=== PATIENT | male | born 1980 | race Hispanic/Latino ===

== ENCOUNTER 2017-05-24 22:11 | Emergency (ER) | payer SELFPAY ==
[2017-05-24 22:21] VITALS: BP 144/87; PULSE 89; RESP 18; TEMP 98.5; O2SAT 98
[2017-05-24] MEDS ORDERED: Oxycodone/Acetaminophen 5/325 mg Tab PO STA (22:30)
[2017-05-24] MEDS ORDERED: TDAP Vaccine 0.5 mL Syr IM ONE (22:40)
--- NOTE | 2017-05-24 23:29 | ED PDOC ---
Arrival/HPI - General Chief Complaint: Abnormal Skin Integrity Time Seen by Provider: 05/24/17 22:40 Historian: Patient - History of Present Illness Narrative History of Present Illness (Text): 05/24/17 22:40 37 year old male who presents to the Emergency department complaining of a laceration to left 4th finger prior to arrival. Patient states he sustained a laceration to his left 4th finger after a cup broke in his hand. Patient denies any decrease ROM, weakness/numbness/tingling in the extremity, other trauma/ injury, or any other complaints. Time/Duration: Prior to Arrival Symptom Onset: Sudden Symptom Course: Unchanged Activities at Onset: Light Context: Home Past Medical History - Provider Review Nursing Documentation Reviewed: Yes - Psychiatric Hx Depression: No Hx Emotional Abuse: No Hx Physical Abuse: No Hx Substance Use: No - Suicidal Assessment Feels Threatened In Home Enviroment: No Family/Social History - Physician Review Nursing Documentation Reviewed: Yes Family/Social History: Unknown Family HX Smoking Status: Light Smoker < 10 Cigarettes Daily Hx Alcohol Use: No Hx Substance Use: No Hx Substance Use Treatment: No Allergies/Home Meds Allergies/Adverse Reactions: Allergies Penicillins Allergy (Verified 05/24/17 22:16) RASH Review of Systems - Physician Review All systems were reviewed & negative as marked: Yes - Review of Systems Constitutional: Normal Eyes: Normal ENT: Normal Respiratory: Normal Cardiovascular: Normal Gastrointestinal: Normal. absent: Diarrhea, Nausea, Vomiting Genitourinary Male: Normal Musculoskeletal: Normal. absent: Back Pain, Neck Pain Skin: Laceration Neurological: Normal Endocrine: Normal Hemo/Lymphatic: Normal Psychiatric: Normal Physical Exam Vital Signs Reviewed: Yes Vital Signs Temp Pulse Resp BP Pulse Ox 05/24/17 22:20 98.5 F 89 18 144/87 98 Temperature: Afebrile Blood Pressure: Normal Pulse: Regular Respiratory Rate: Normal Appearance: Positive for: Well-Appearing, Non-Toxic, Comfortable Pain Distress: None Mental Status: Positive for: Alert and Oriented X 3 - Systems Exam Head: Present: Atraumatic, Normocephalic Pupils: Present: PERRL Extroacular Muscles: Present: EOMI Conjunctiva: Present: Normal Mouth: Present: Moist Mucous Membranes Neck: Present: Normal Range of Motion Upper Extremity: Present: Normal ROM, NORMAL PULSES, Neurovascularly Intact, Capillary Refill < 2s, Other (3 cm laceration to proximal volar aspect of left 4th digit. Flexor tendon visible and intact. No foreign body noted). No: Cyanosis, Edema, Tenderness, Swelling, Erythema, Deformity Lower Extremity: Present: Normal Inspection. No: Edema Neurological: Present: GCS=15, CN II-XII Intact, Speech Normal Skin: Present: Warm, Dry, Normal Color. No: Rashes Psychiatric: Present: Alert, Oriented x 3, Normal Insight, Normal Concentration Medical Decision Making ED Course and Treatment: 05/24/17 22:40 Impression: 37 year old male presents for a left 4th finger laceration prior to arrival. Differential Diagnosis included but are not limited to: laceration Plan: -- XR Left Hand, 4th digit -- Tetanus vaccination -- Cleocin -- Percocet -- Laceration repair -- Reassess and disposition Progress Notes: XR L 4th digit: no FB, no fracture, no dislocation, as read by PA Patient advised that official radiology read of XR is still pending and will call the patient if there is any discrepancy within 24 hours. The wound is L 4th digit. The wound was copiously irrigated with normal saline. The wound was prepped and draped in the normal sterile fashion. The wound was explored for foreign bodies and none were found. The wound was anesthetised using lidocaine. The edges were reapproximated using 4, 5-0 prolene by ISABELLE. Bleeding was well controlled and the patient tolerated the procedure well. Clean dressing applied. Finger splint applied. Neurovascular intact post splint application. Advised to follow up with primary care physician in 1-2 days without fail. Advised to take medication as prescribed, and to have sutures removed after 7 days. Return to the emergency room at any time for any new or worsening symptoms. Patient states he fully agrees with and understands discharge instructions. States that he agrees with the plan and disposition. Verbalized and repeated discharge instructions and plan. I have given the patient opportunity to ask any additional questions. - RAD Interpretation Radiology Orders: 05/24/17 22:40 HAND LEFT 4TH DIGIT (FINGER) [RAD] Stat - Medication Orders Current Medication Orders: Discontinued Medications Clindamycin HCl (Cleocin) 300 mg PO STAT STA PRN Reason: Protocol Stop: 05/24/17 22:44 Last Admin: 05/24/17 23:11 Dose: 300 mg Lidocaine HCl (Lidocaine 1% (20ml)) Confirm Administered Dose 20 ml .ROUTE .STK- MED ONE Stop: 05/24/17 23:41 Oxycodone/Acetaminophen (Percocet 5/325 Mg Tab) 1 tab PO STAT STA Stop: 05/24/17 22:31 Last Admin: 05/24/17 22:39 Dose: 1 tab Tetanus/Reduced Diphtheria/Acell Pertussis (Boostrix Vaccine Inj) 0.5 ml IM .ONCE ONE Stop: 05/24/17 22:41 Last Admin: 05/24/17 23:10 Dose: 0.5 ml - PA / 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 - Scribe Statement The provider has reviewed the documentation as recorded by the Eli Monzon Provider Scribe Attestation: All medical record entries made by the Scribe were at my direction and personally dictated by me. I have reviewed the chart and agree that the record accurately reflects my personal performance of the history, physical exam, medical decision making, and the department course for this patient. I have also personally directed, reviewed, and agree with the discharge instructions and disposition. Disposition/Present on Arrival - Present on Arrival Any Indicators Present on Arrival: No History of DVT/PE: No History of Uncontrolled Diabetes: No Urinary Catheter: No History of Decub. Ulcer: No History Surgical Site Infection Following: None - Disposition Have Diagnosis and Disposition been Completed?: Yes Diagnosis: Finger laceration Disposition: HOME/ ROUTINE Disposition Time: 00:00 Patient Plan: Discharge Patient Problems: Current Active Problems Problem Status Onset Finger laceration Acute Condition: STABLE Discharge Instructions (ExitCare): Finger Laceration (ED) Print Language: YORUBA Additional Instructions: Thank you for letting us take care of you today. You were treated for finger laceration. The emergency medical care you received today was directed at your acute symptoms. If you were prescribed any medication, please fill it and take as directed. It may take several days for your symptoms to resolve. Return to the Emergency Department if your symptoms worsen, do not improve, or if you have any other problems. Please contact your doctor in 2 days for re-evaluation and follow up / or call one of the physicians/clinics you have been referred to that are listed on the Patient Visit Information form that is included in your discharge packet. Bring any paperwork you were given at discharge with you along with any medications you are taking to your follow up visit. Our treatment cannot replace ongoing medical care by a primary care provider (PCP) outside of the emergency department. [facility] care today. If you had an X-Ray : A Radiologist will review the ED reading if any change in treatment is needed we will contact you. Prescriptions: Clindamycin [Cleocin] 300 mg PO TID #21 cap Referrals: PCP,NO [Primary Care Provider] - Follow up with primary [facility] [place]] - Follow up with primary Forms: [employer] (Faroese), WORK NOTE
[2017-05-24] MEDS ORDERED: Lidocaine 1% Inj (20ml) ONE (23:40)
--- NOTE | 2017-05-25 09:21 | RAD ---
PROCEDURE: Left ring finger radiographs. HISTORY: trauma COMPARISON: None. TECHNIQUE: AP radiograph of the left hand, as well as spot oblique and lateral images of left ring finger were obtained. FINDINGS: LEFT RING FINGER: Left ring finger is partially obscured due to overlap of adjacent fingers. Proper evaluation therefore cannot be made. The study be repeated JOINTS: Joint spaces appear preserved so far as can be seen. SOFT TISSUES: Soft tissues of the 4th finger also partially obscured OTHER FINDINGS: None. IMPRESSION: Left ring finger partially obscured due to overlap of adjacent fingers. Proper evaluation cannot be made. Study should be repeated. Note that this report was placed in PA review folder followup
== END 2017-05-25 00:35 | disposition home or self-care (01) ==
LOC: ED 22:11
DX: S61.215A Laceration without foreign body of left ring finger without damage to nail, initial encounter (principal); W45.8XXA Other foreign body or object entering through skin, initial encounter; Y92.009 Unspecified place in unspecified non-institutional (private) residence as the place of occurrence of the external cause; Z23 Encounter for immunization